=== PATIENT | male | born 1965 | race Caucasian/White ===

== ENCOUNTER 2020-02-14 09:38 | Outpatient (REF) | payer OTHER, SELFPAY ==
[2020-02-14 10:03] LABS: COVID-19 Test Negative (Negative); IDNOW Serial# 9DD0AD1C
== END 2020-02-14 09:39 | disposition home or self-care (01) ==
LOC: HO.EMPCOV 09:38
PROVIDERS: Visit Provider Internal Medicine
DX: Z20.828 Contact with and (suspected) exposure to other viral communicable diseases (principal)
CPT/HCPCS: 87635; C9803

== ENCOUNTER 2020-08-01 15:07 | Outpatient (REF) | payer OTHER, SELFPAY ==
[2020-08-01 15:54] LABS: MANUAL DIFF FLAG NO
[2020-08-01 15:59] LABS: Basophils Absolute Auto 0.1 X10*3/uL (0.0-0.2); Basophils Percent Auto 0.7 % (0-2); Eosinophils Absolute Auto 0.7 X10*3/uL (0.0-0.4); Eosinophils Percent Auto 10.4 % (0-4); Hematocrit 37.8 % (42-52); Hemoglobin 11.6 g/dl (14.0-18.0); Imm Gran Abs Auto 0.03 X10*3/uL (0.00-0.03); Imm Gran Pct Auto 0.4 % (0.0-0.4); Lymphocytes Percent Auto 42.6 % (20-40); Mean Corpuscular HGB Conc 30.7 g/dl (31.0-36.0); Mean Corpuscular Hemoglobin 24.2 pg (27.0-33.0); Mean Corpuscular Volume 78.8 fL (80-98); Mean Platelet Volume 10.5 fL (9.4-12.4); Monocytes Absolute Auto 0.6 X10*3/uL (0.1-1.2); Monocytes Percent Auto 8.5 % (2-11); Neutrophils Absolute Auto 2.6 X10*3/uL (2.0-8.3); Neutrophils Percent Auto 37.4 % (45-73); Platelet Count 315 X10*3/uL (160-400); Red Cell Distribution Width 15.8 % (11.0-16.0)
[2020-08-01 16:14] LABS: Alanine Aminotransferase 20 U/L (0-40); Albumin Level 4.3 g/dL (3.5-5.0); Alkaline Phosphatase 94 U/L (39-117); Anion Gap 12 (12-20); Aspartate Amino Transferase 22 U/L (5-37); Bilirubin Total 0.5 mg/dL (0.0-1.0); Blood Urea Nitrogen 19 mg/dL (9-16); Calcium 8.8 mg/dL (8.4-10.2); Carbon Dioxide 26 mmol/L (22-29); Chloride 106 mmol/L (96-108); Estimated Glomerular Filt Rate > 60; Glucose Random 91 mg/dL (60-115); Potassium 4.3 mmol/L (3.3-5.1); Sodium 140 mmol/L (135-145); Total Protein 7.1 g/dL (6.5-8.0)
[2020-08-02 07:45] LABS: Iron 35 mcg/dL (45-160); Percent Iron Saturation 9 % (15-50); Total Iron Binding Capacity 375 mcg/dL (228-428); Unsaturated Iron Binding 340 ug/dL
[2020-08-02 10:12] LABS: Immature Retic Fraction 15.2 % (2.3-13.4); Retic HGB Equivalent 27.2 pg (30.0-35.0); Reticulocyte Percent 1.2 % (0.5-1.8); Reticulocytes Absolute 0.057 X10*6/uL (0.026-0.095)
[2020-08-02 10:57] LABS: Lyme Abs Screen <0.90 index
[2020-08-02 12:07] LABS: Ferritin 7 ng/mL (20-250)
== END 2020-08-01 15:08 | disposition home or self-care (01) ==
LOC: HO.LAB 15:07
PROVIDERS: Visit Provider Pathology Anatomic Pathology & Clinical Pathology
DX: M25.50 Pain in unspecified joint (principal)
CPT/HCPCS: 36415; 80053; 82728; 83540; 85025; 85045; 86617; 86618

== ENCOUNTER 2020-10-04 08:10 | Outpatient (REF) | payer OTHER, SELFPAY ==
--- NOTE | ~2020-10-04 | MR_ITS ---
EXAMINATION: MR KNEE WITHOUT CONTRAST, LEFT CLINICAL INFORMATION: Left knee pain and swelling. COMPARISON: None TECHNIQUE: MRI of the knee without contrast was performed using routine sequences on a high-field scanner. FINDINGS: MENISCI: Medial Meniscus: Intact. Lateral Meniscus: Intact. LIGAMENTS: Cruciate: Intact. Collateral: Minimal edema adjacent to the medial collateral ligament, which could represent a minimal grade 1 sprain. Intact fibular collateral ligament. EXTENSOR MECHANISM: Intact. ARTICULAR CARTILAGE/BONE: Patellofemoral Compartment: Full-thickness articular cartilage loss at the central trochlea with an associated central osteophyte measuring up to 1.5 cm in craniocaudal dimension. Mild underlying subchondral cystic change. Tiny marginal osteophytes. Medial Compartment: Intact articular cartilage. Lateral Compartment: Intact articular cartilage. JOINT FLUID AND BURSAE: Moderate joint effusion. Trace fluid within the pes anserine bursa, consistent with minimal bursitis. MUSCLES/TENDONS: Edema within the proximal medial and lateral gastrocnemius muscles, consistent with mild muscle strains. MR/MR knee LT wo con IMPRESSION: 1. Possible grade 1 sprain of the medial collateral ligament. 2. No meniscal tear. 3. 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 Moderate joint effusion. 4. Trace fluid within the pes anserine bursa, consistent with minimal bursitis. 5. Mild strains of the medial and lateral gastrocnemius muscles.
== END 2020-10-04 08:11 | disposition home or self-care (01) ==
LOC: HO.MRI 08:10
PROVIDERS: Visit Provider Orthopaedic Surgery
DX: M25.562 Pain in left knee (principal)
CPT/HCPCS: 73721

== ENCOUNTER 2021-03-30 12:46 | Outpatient (REF) | payer OTHER, SELFPAY | END 2021-03-30 12:47 | disposition home or self-care (01) | LOC: HO.LNP 12:46 | PROVIDERS: Visit Provider Surgery | DX: L98.9 Disorder of the skin and subcutaneous tissue, unspecified (principal) | CPT/HCPCS: 11441 ==

== ENCOUNTER 2021-03-30 13:21 | Outpatient (REF) | payer OTHER, SELFPAY | END 2021-03-30 13:22 | disposition home or self-care (01) | LOC: HO.LAB 13:21 | PROVIDERS: Visit Provider Surgery | DX: L82.0 Inflamed seborrheic keratosis (principal) | CPT/HCPCS: 88305 ==

== ENCOUNTER 2022-10-15 09:22 | Outpatient (AMB) | payer OTHER, SELFPAY ==
--- NOTE | 2022-10-15 09:23 | MHC.OFFVIS ---
Intake Vital Signs 10/15/22 09:32 Height 6 ft Weight 195 lb 6 oz BMI 26.5 BP 140/87 H Blood Pressure Location Lt brachial Position Sitting Pulse 94 Intake Visit Reasons: Lesion on head Intake Note: Patient is seen in office for evaluation and treatment of a lesion on head. Patient c/o: onset for 6 months, has increase in size, denies discharge, redness, discoloration, pain, itchy or other concerns Glass Mechanic Required: No Accompanied by: Self / Same As Patient Allergies No Known Allergies Allergy (Verified 10/15/22 09:28) HPI HPI Comments History of Present Illness Details 57-year-old male patient presenting with a raised lesion of the right forehead above the eyebrow. Lesion has gradually increased in size and now measures approximately 3 mm in diameter with a small punched-out depression in the center. Patient is concerned about a skin neoplasm and has requested excision. [facility] Family History Maternal Grandfather Lung cancer Social History Alcohol intake: current Patient Tobacco Use Status: Never used Tobacco Review of Systems Const All systems reviewed & are unremarkable except as noted in HPI and below Skin/Breast Reports as per HPI Physical Exam Const General: no acute distress Nutritional Appearance: well nourished Orientation/consciousness: patient oriented x3 Limitations: no limitations HEENT Head images: 1. 3 mm raised flesh-colored lesion with slight depression in the center. No ulceration or bleeding appreciated. No pigmentation. Margins are smooth and symmetric. Resp Effort & Inspection: normal respiratory effort Skin Other: As noted in head (above). Neuro General: patient oriented x3 Extrem General: No edema Office Procedures Excision Details: Preoperative diagnosis: Skin lesion right forehead Postoperative diagnosis: Same Procedure: Excision skin lesion right forehead Surgeon: Isac Aranda MD Senior Major Gifts Officer: None Anesthesia: Lidocaine 1% with epinephrine Indications for procedure: 57-year-old male with enlarging flesh-colored lesion of the right forehead with a central depression. Lesion is of unknown malignant potential. Operative findings: 3 mm lesion right forehead just above eyebrow Specimen: Skin lesion right forehead Estimated blood loss: 2 mL Complications: None Procedure details: Patient was placed in a supine position. The site of surgery was confirmed informed consent assured. Skin was prepped with Betadine and draped in a sterile fashion. Local anesthesia was then infiltrated around the lesion. Elliptical incision was then created with a scalpel oriented transversely. Incision was carried out through subcutaneous tissue and around the lesion. The lesion was passed off the table and sent to pathology for further examination. After assuring hemostasis the skin was closed using a running 5 0 nylon suture. Sterile dressings including bacitracin and sterile bandage was then applied. The patient tolerated the procedure well was discharged in stable condition. [id number] face/ear/eyelid/nose/lip/mucous membrane <0.5cm Procedure code (CPT) selection complete Assessment & Plan Assessment & Plan (1) Neoplasm of skin of forehead: Code(s): D49.2 - Neoplasm of unspecified behavior of bone, soft tissue, and skin Plan Skin lesion of right forehead, excision performed today. Patient tolerated well. Suture removal in approximately 5-10 days. Orders: Orders Surgical Today D49.2 - Neoplasm of unspecified behavior of bone, soft tissue, and skin Coding Level of Care Code Procedure Only Diagnoses Neoplasm of skin of forehead D49.2 CPT Codes Face/Ear/Eyelid/Nose/Lip/Mucous Membrane - CPT: 12573-Vzyowwio face/ear/eyelid/nose/lip/mucous membrane <0.5cm ([id number])
[2022-10-15 09:32] VITALS: BP 140/87; PULSE 94; BMI 26.5
== END 2022-10-15 09:54 | disposition home or self-care (01) ==
PROVIDERS: Visit Provider Surgery
DX: D49.2 Neoplasm of unspecified behavior of bone, soft tissue, and skin (principal)
CPT/HCPCS: 11440

== ENCOUNTER 2022-10-15 09:22 | Outpatient (REF) | payer OTHER, SELFPAY | END 2022-10-15 09:23 | disposition home or self-care (01) | LOC: HO.LNP 09:22 | PROVIDERS: Visit Provider Surgery | DX: D49.2 Neoplasm of unspecified behavior of bone, soft tissue, and skin (principal); L85.8 Other specified epidermal thickening | CPT/HCPCS: 11440; 88305 ==

== ENCOUNTER 2023-01-15 11:18 | Outpatient (REF) | payer OTHER, SELFPAY | END 2023-01-15 11:19 | disposition home or self-care (01) | LOC: HO.LNP 11:18 | PROVIDERS: Visit Provider Surgery | DX: D18.01 Hemangioma of skin and subcutaneous tissue (principal) | CPT/HCPCS: 11401; 88305 ==

== ENCOUNTER 2023-01-15 11:18 | Outpatient (AMB) | payer OTHER, SELFPAY ==
--- NOTE | 2023-01-15 12:38 | A.OFFVIS_ITS ---
Intake Vital Signs 3 01/15/23 12:38 Height 6 ft BMI Reason not done Patient refused/unable BP not taken reason Patient Refused Intake Visit Reasons: Lesion on back needs to be removed Intake Note: Patient here to have lesion on back removed. 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 Lesion is been present for many years but recently became more irritated and itchy. He denies any bleeding or pain associated with the lesion. He has requested excision for biopsy. [facility] Family History Maternal Grandfather Lung cancer Social History Alcohol intake: current Patient Tobacco Use Status: Never used Tobacco Review of Systems Const All systems reviewed & are unremarkable except as noted in HPI and below Physical Exam Const General: no acute distress Nutritional Appearance: well nourished Orientation/consciousness: patient oriented x3 Limitations: no limitations Resp Effort & Inspection: normal respiratory effort Back/Spine/Pelvis Back/spine/pelvis image: 2 1. 6 mm round slightly raised skin lesion with surrounding area of erythema measuring approximately 2 cm in diameter. No ulceration or bleeding is identified. Lesion is nontender to palpation. Findings suggestive of a hemangioma or granuloma. Skin Other: Warm, dry, no ulceration Neuro General: patient oriented x3 Office Procedures Excision Details: Preoperative diagnosis: Skin lesion left upper back Postoperative diagnosis: Same Procedure: Excision of skin lesion left upper back Surgeon: Isac Aranda MD Manager Costing: None Anesthesia: Lidocaine 1% with epinephrine Indications for procedure: Irritated skin lesion located in the left upper back which is become very itchy and red Operative findings: 6 mm round raised lesion with surrounding area of erythema as noted above Specimen: Skin lesion left upper back Estimated blood loss: Less than 1 mL Complications: None Procedure details: Patient was placed in a prone position. The site of surgery was confirmed in the left upper back. After assuring informed consent the skin was prepped with Betadine and draped in a sterile fashion. Local anesthesia was then infiltrated circumferentially. Elliptical incision oriented transversely was then created with scalpel. This was carried out through subcutaneous tissue and around the skin lesion. The lesion was passed off table and sent to pathology for further examination. After assuring adequate hemostasis the skin was closed using interrupted 4-0 nylon sutures. Bacitracin was applied to the surrounding skin. This was then covered with a large Band-Aid. The patient tolerated the procedure well was discharged in stable condition. [id number]-sztia/arms/legs 0.6-1cm Procedure code (CPT) selection complete Assessment & Plan Assessment & Plan (1) Pigmented skin lesion of uncertain behavior of torso: Code(s): L81.9 - Disorder of pigmentation, unspecified Plan 57-year-old male patient presenting with an irritated skin lesion of the left upper back. He underwent excision under local anesthesia today. I recommended removal of the sutures in approximately 1 week. Orders: Orders 2 Surgical Today L81.9 - Disorder of pigmentation, unspecified Coding Level of Care Code Est Pt Level 2 (80921) Diagnoses Pigmented skin lesion of uncertain behavior of torso L81.9 CPT Codes Trunk/Arms/Legs - CPT: 47543-gogaj/arms/legs 0.6-1cm ([id number])
== END 2023-01-15 13:03 | disposition home or self-care (01) ==
PROVIDERS: Visit Provider Surgery
DX: L81.9 Disorder of pigmentation, unspecified (principal)
CPT/HCPCS: 11401; 99212

== ENCOUNTER 2023-11-26 16:00 | Outpatient (RCR) | payer BC, SELFPAY | END 2024-01-20 09:49 | disposition home or self-care (01) | LOC: HO.PT 16:00 | PROVIDERS: Visit Provider Specialist | DX: M75.41 Impingement syndrome of right shoulder (principal) | CPT/HCPCS: 97014; 97035; 97110; 97112; 97140; 97161 ==